=== PATIENT | male | born 1975 | race Caucasian/White ===

== ENCOUNTER 2025-05-27 14:26 | Emergency (ER) | payer OTHER ==
[2025-05-27] MEDS: valACYclovir 1,000 MG Tab PO ONE (15:10)
== END 2025-05-27 15:39 | disposition home or self-care (01) ==
LOC: JD.ED 14:26
DX: G51.0 Bell's palsy (principal); Z79.899 Other long term (current) drug therapy; Z87.891 Personal history of nicotine dependence
CPT/HCPCS: 99284; A9270; J7512